=== PATIENT | female | born 1990 | race Caucasian/White ===

== ENCOUNTER 2020-05-31 19:08 | Inpatient (IN) | payer MEDICAID ==
[2020-05-31] MEDS ORDERED: Nalbuphine 10 MG/1 ML Vial IVPUSH PRN (19:52)
[2020-05-31] MEDS ORDERED: Ondansetron 4 MG/2 ML SDV IVPUSH PRN (19:52)
[2020-05-31] MEDS ORDERED: Sodium Chloride 0.9% 10 ML Syringe FLUSH PRN (19:52)
[2020-05-31] MEDS ORDERED: Lactated Ringers 1,000 ML IV SCH (20:00)
[2020-05-31] MEDS ORDERED: Oxytocin/Lactated Ringers 10 UNIT/1,000 ML BAG IV SCH (20:00)
--- NOTE | 2020-05-31 20:34 | PCM.LDHP ---
L&D History of Present Illness - General Date of Service: 05/31/20 Admit Problem/Dx: Patient Status Order with Admit Dx/Problem 05/31/20 19:16 Patient Status [ADT] Routine 05/31/20 19:52 Patient Status [ADT] Routine Admission Diagnosis/Problem Admission Diagnosis/Problem Source of Information: Patient History Limitations: Reports: No Limitations - History of Present Illness Introduction:: 30-year-old -0-1-3 JACE 06/14/2020 estimated gestational age 38 weeks 0 days presented to labor delivery complaining contractions throughout the day. Cervix on presentation to labor and delivery 5 to 6 cm dilated 80% effaced at 2022 hrs. amniotomy performed clear fluid heart tones category 1 before and after amniotomy. Cervix 6 cm dilated 80% effaced, soft, anterior, vertex presentation 0 station. GBS negative. Blood type O+ antibody screen negative on 12/13/2019 hemoglobin/hematocrit 13.4/39.6 platelets 254,000. Rubella positive (immune) serology nonreactive, hepatitis B surface antigen nonreactive hepatitis C nonreactive, GC and Chlamydia probe not detected. GBS negative as noted above. 03/03/2020 hemoglobin 11.8 platelets 257,000 OB glucose screen 77 antibody screen negative Patient does have a history of having had herpes last outbreak of some 7 years ago not on prophylactic medication at present time. No outbreaks no lesions no medication started at present time since patient is an active labor. Plan labor and delivery. Patient declined epidural anesthesia. Timing/Duration: Reports: hour(s): Location, : Reports: Abdomen, Lower back, Uterus Quality: Reports: Ache, Pressure Severity: Moderate Improves with: Reports: None Worsens with: Reports: None Associated Symptoms: Reports: N - Related Data Allergies/Adverse Reactions: Allergies Allergy/AdvReac Type Severity Reaction Status Date / Time cat dander Allergy Unknown Itching Verified 10/10/18 02:44 Home Medications: Home Meds Calcium Carbonate [Tums] 300 mg PO Q2HR PRN 10/10/18 [History] Levothyroxine 225 mcg PO ACBREAKFAST 10/10/18 [History] No122/Iron/Folic Acid [ Multi Tablet] 1 each PO DAILY 10/10/18 [History] calcitrioL [Rocaltrol] 0.5 mcg PO DAILY 10/10/18 [History] Ibuprofen [Motrin] 600 mg PO Q6H PRN tablet 10/11/18 [Rx] Past Medical History Respiratory History: Reports: Asthma Genitourinary History: Reports: Other (See Below) Other Genitourinary History: genital herpes CLIENT SERVICES ASSISTANT History: Reports: , Spontaneous Endocrine/Metabolic History: Reports: Hypothyroidism - Infectious Disease History Infectious Disease History: Reports: Chicken Pox - Past Surgical History HEENT Surgical History: Reports: Other (See Below) Other HEENT Surgeries/Procedures: Thyroidectomy Social & Family History - Family History Family Medical History: No Pertinent Family History H&P Review of Systems - Review of Systems: Review Of Systems: See Below General: Reports: No Symptoms HEENT: Reports: No Symptoms Pulmonary: Reports: No Symptoms Cardiovascular: Reports: No Symptoms Gastrointestinal: Reports: No Symptoms Genitourinary: Reports: No Symptoms Musculoskeletal: Reports: No Symptoms Skin: Reports: No Symptoms Psychiatric: Reports: No Symptoms Neurological: Reports: No Symptoms Hematologic/Lymphatic: Reports: No Symptoms Immunologic: Reports: No Symptoms L&D Exam - Exam Exam: See Below - Vital Signs Weight: 142 lb - OB Specific Fundal Height In cm: 38 Contraction Duration (sec): 60 Contraction Frequency (min): 35 Contraction Intensity: Moderate Movement: Active Heart Tones: Present Heart Tones per Min: 140 Heart Rate (FHR) Variability: Moderate (6-25 bmp) Presentation: Vertex - Linn Score Linn Score Cervix Position: Anterior Linn Score Consistency: Soft Linn Score Effacement: >80% Linn Score Dilation: > 5 cm Linn Score 's Station: -1 ,0 Linn Score Total: 12 - Exam General: Alert, Oriented HEENT: Conjunctiva Clear, Mucosa Moist & [place] Neck: Supple, Trachea Midline Lungs: Clear to Auscultation, Normal Respiratory Effort Cardiovascular: Regular Rate, Regular Rhythm GI/Abdominal Exam: Normal Bowel Sounds, Soft, Non-Tender Genitourinary: Normal external exam Extremities: Normal Inspection, Non-Tender, No Pedal Edema, Normal Capillary Refill Skin: Warm, Dry, Intact Psychiatric: Alert, Normal Affect, Normal Mood - Patient Data Lab Results Last 24 hrs: Laboratory Results - last 24 hr 05/31/20 Range/Units 20:05 WBC 7.82 (3.98-10.04) K/mm3 RBC 3.69 L (3.98-5.22) M/mm3 Hgb 10.5 L (11.2-15.7) gm/dl Hct 32.2 L (34.1-44.9) % MCV 87.3 D (79.4-94.8) fl MCH 28.5 (25.6-32.2) pg MCHC 32.6 (32.2-35.5) g/dl RDW Std Deviation 41.2 (36.4-46.3) fL Plt Count 207 (182-369) K/mm3 MPV 11.1 (9.4-12.3) fl Neut % (Auto) 66.6 (34.0-71.1) % Lymph % (Auto) 19.4 (19.3-51.7) % [place] % (Auto) 12.0 (4.7-12.5) % Eos % (Auto) 1.5 (0.7-5.8) Baso % (Auto) 0.1 (0.1-1.2) % Neut # (Auto) 5.20 (1.56-6.13) K/mm3 Lymph # (Auto) 1.52 (1.18-3.74) K/mm3 [place] # (Auto) 0.94 H (0.24-0.36) K/mm3 Eos # (Auto) 0.12 (0.04-0.36) K/mm3 Baso # (Auto) 0.01 (0.01-0.08) K/mm3 Result Diagrams: 05/31/20 20:05 - Problem List (1) 38 weeks gestation of SNOMED Code(s): 35016679 ICD Code: Z3A.38 - 38 WEEKS GESTATION OF Status: Acute Current Visit: Yes Problem List Initiated/Reviewed/Updated: No Orders Last 24hrs: Active Orders 24 hr Category Date Time Status Patient Status [ADT] Routine ADT 05/31/20 19:16 Active Patient Status [ADT] Routine ADT 05/31/20 19:52 Active Activity as Tolerated [RC] PFP Care 05/31/20 19:52 Active Communication Order [RC] ASDIRECTED Care 05/31/20 19:52 Active Heart Tones [RC] ASDIRECTED Care 05/31/20 19:53 Active Non Stress Test [RC] PER UNIT ROUTINE Care 05/31/20 19:16 Active Non Stress Test [RC] PER UNIT ROUTINE Care 05/31/20 19:52 Active Notify Provider [RC] PFP Care 05/31/20 19:52 Active Notify Provider [RC] PRN Care 05/31/20 19:52 Active Peripheral IV Care [RC] . DIRECTED Care 05/31/20 19:53 Active Urinary Catheter Assessment [RC] ASDIRECTED Care 05/31/20 19:52 Active Vital Signs [RC] PER UNIT ROUTINE Care 05/31/20 19:16 Active Vital Signs [RC] PER UNIT ROUTINE Care 05/31/20 19:52 Active Regular Diet [DIET] Diet 05/31/20 Breakfast Active CORONAVIRUS COVID-19 CATARINO [MOLEC] Stat Lab 05/31/20 20:05 Received RAPID PLASMA REAGIN,RPR [CHEM] Routine Lab 05/31/20 20:05 Received Lactated Ringers [Ringers, Lactated] 1,000 ml Med 05/31/20 20:00 Active IV ASDIRECTED Nalbuphine [Nubain] Med 05/31/20 19:52 Active 10 mg IVPUSH Q2H PRN Ondansetron [Zofran] Med 05/31/20 19:52 Active 4 mg IVPUSH Q4H PRN Oxytocin/Lactated Ringers [Pitocin in LR 10 Units/1,000 Med 05/31/20 20:00 Active ML] 10 unit in 1,000 ml IV .CONTINUOUS Sodium Chloride 0.9% [Saline Flush] Med 05/31/20 19:52 Active 10 ml FLUSH ASDIRECTED PRN Electronic Heart Tones Ext w TOCO [WOMSER] Oth 05/31/20 19:52 Ordered Routine Electronic Heart Tones Internal [WOMSER] Per Unit Oth 05/31/20 19:52 Ordered Routine Peripheral IV Insertion Adult [OM.PC] Routine Oth 05/31/20 19:52 Ordered Resuscitation Status Routine Resus Stat 05/31/20 19:16 Ordered Medication Orders Lactated Ringer's (Ringers, Lactated) 1,000 mls @ 100 mls/hr IV ASDIRECTED EDWIN Oxytocin/Lactated Ringer's (Pitocin In Lr 10 Units/1,000 Ml) 10 unit in 1,000 mls @ 500 mls/hr IV .CONTINUOUS EDWIN Nalbuphine HCl (Nalbuphine 10 Mg/1 Ml Vial) 10 mg IVPUSH Q2H PRN PRN Reason: Pain Ondansetron HCl (Ondansetron 4 Mg/2 Ml Sdv) 4 mg IVPUSH Q4H PRN PRN Reason: Nausea/Vomiting Sodium Chloride (Sodium Chloride 0.9% 10 Ml Syringe) 10 ml FLUSH ASDIRECTED PRN PRN Reason: Keep Vein Open Assessment/Plan Comment:: Plan labor and delivery
--- NOTE | 2020-05-31 22:34 | PCM.DEL ---
L & D Note - General Info Date of Service: 05/31/20 Mother's Due Date: 06/14/20 - Delivery Note Labor: Spontaneous, Augmented by ARM Delivery Outcome: Livebirth (Female liveborn 05/31/2020 at 2217 hrs. weight 2980 g / 6 pounds 9.1 ounces Apgars 8/9 DENICE under no anesthesia with no lacerations no episiotomy EBL 150) Delivery Method: Spontaneous Vaginal Delivery-Single Delivery Mode: Spontaneous Presentation: Right Occiput Anterior (DENICE) Nuchal Cord: None Prep: Povidone-Iodine (Betadine Episiotomy Type: None Laceration: None Placenta: Intact, Spontaneous (Spontaneous delivery at 2221 hrs. 05/31/2020 70) Cord: 3 Vessels Estimated Blood Loss: 150 Resuscitation Needed: No : Suctioned, Bulb Syringe, Stimulated, Warmed, [place] Used, Warmer Used Provider: Larry Walker Score 1 min: 8 Score 5 min: 9 Induction Criteria - Augmentation Weight Estimated:: Reports: AGA Reassuring Monitoring Strip: Yes Absence of Tachy Systole: Yes - General Info Date of Service: 05/31/20 Functional Status: Reports: Pain Controlled - Review of Systems General: Reports: No Symptoms HEENT: Reports: No Symptoms Pulmonary: Reports: No Symptoms Cardiovascular: Reports: No Symptoms Gastrointestinal: Reports: No Symptoms Genitourinary: Reports: No Symptoms Musculoskeletal: Reports: No Symptoms Skin: Reports: No Symptoms Neurological: Reports: No Symptoms Psychiatric: Reports: No Symptoms - Patient Data Vitals - Most Recent: Last Vital Signs Temp 99.0 F 05/31/20 19:29 Pulse 103 H 05/31/20 19:29 Resp 18 05/31/20 19:29 BP 124/66 05/31/20 19:29 Pulse Ox 100 05/31/20 19:29 Weight - Most Recent: 142 lb Lab Results Last 24 Hours: Laboratory Results - last 24 hr 05/31/20 05/31/20 Range/Units 20:05 20:05 WBC 7.82 (3.98-10.04) K/mm3 RBC 3.69 L (3.98-5.22) M/mm3 Hgb 10.5 L (11.2-15.7) gm/dl Hct 32.2 L (34.1-44.9) % MCV 87.3 D (79.4-94.8) fl MCH 28.5 (25.6-32.2) pg MCHC 32.6 (32.2-35.5) g/dl RDW Std Deviation 41.2 (36.4-46.3) fL Plt Count 207 (182-369) K/mm3 MPV 11.1 (9.4-12.3) fl Neut % (Auto) 66.6 (34.0-71.1) % Lymph % (Auto) 19.4 (19.3-51.7) % [place] % (Auto) 12.0 (4.7-12.5) % Eos % (Auto) 1.5 (0.7-5.8) Baso % (Auto) 0.1 (0.1-1.2) % Neut # (Auto) 5.20 (1.56-6.13) K/mm3 Lymph # (Auto) 1.52 (1.18-3.74) K/mm3 [place] # (Auto) 0.94 H (0.24-0.36) K/mm3 Eos # (Auto) 0.12 (0.04-0.36) K/mm3 Baso # (Auto) 0.01 (0.01-0.08) K/mm3 SARS-CoV-2 RNA (CATARINO) Negative (NEGATIVE) Med Orders - Current: Current Medications Lactated Ringer's (Ringers, Lactated) 1,000 mls @ 100 mls/hr IV ASDIRECTED EDWIN Oxytocin/Lactated Ringer's (Pitocin In Lr 10 Units/1,000 Ml) 10 unit in 1,000 mls @ 500 mls/hr IV .CONTINUOUS EDWIN Nalbuphine HCl (Nalbuphine 10 Mg/1 Ml Vial) 10 mg IVPUSH Q2H PRN PRN Reason: Pain Ondansetron HCl (Ondansetron 4 Mg/2 Ml Sdv) 4 mg IVPUSH Q4H PRN PRN Reason: Nausea/Vomiting Sodium Chloride (Sodium Chloride 0.9% 10 Ml Syringe) 10 ml FLUSH ASDIRECTED PRN PRN Reason: Keep Vein Open - Exam General: Alert, Oriented HEENT: Mucous Membr. Moist/[place] Lungs: Clear to Auscultation, Normal Respiratory Effort Cardiovascular: Regular Rate, Regular Rhythm (Female) Exam: Normal External Exam Extremities: Normal Inspection (large varicose veins bilat lower extremities), Non-Tender, No Pedal Edema, Normal Capillary Refill Skin: Warm, Dry, Intact Psy/Mental Status: Alert, Normal Affect, Normal Mood - Problem List & Annotations (1) 38 weeks gestation of SNOMED Code(s): 66177931 Code(s): Z3A.38 - 38 WEEKS GESTATION OF Status: Acute Current Visit: Yes (2) Encounter for full-term uncomplicated delivery SNOMED Code(s): 840852350 Code(s): O80 - ENCOUNTER FOR FULL-TERM UNCOMPLICATED DELIVERY Status: Acute Current Visit: Yes - Problem List Review Problem List Initiated/Reviewed/Updated: No - My Orders Last 24 Hours: My Active Orders 05/31/20 Breakfast Regular Diet [DIET] 05/31/20 19:16 Patient Status [ADT] Routine Non Stress Test [RC] PER UNIT ROUTINE Vital Signs [RC] PER UNIT ROUTINE Resuscitation Status Routine 05/31/20 19:52 Patient Status [ADT] Routine Activity as Tolerated [RC] PFP Communication Order [RC] ASDIRECTED Non Stress Test [RC] PER UNIT ROUTINE Notify Provider [RC] PFP Notify Provider [RC] PRN Urinary Catheter Assessment [RC] ASDIRECTED Vital Signs [RC] ,,, Nalbuphine [Nubain] 10 mg IVPUSH Q2H PRN Ondansetron [Zofran] 4 mg IVPUSH Q4H PRN Sodium Chloride 0.9% [Saline Flush] 10 ml FLUSH ASDIRECTED PRN Electronic Heart Tones Ext w TOCO [WOMSER] Routine Electronic Heart Tones Internal [WOMSER] Per Unit Routine Peripheral IV Insertion Adult [OM.PC] Routine 05/31/20 19:53 Heart Tones [RC] ASDIRECTED Peripheral IV Care [RC] . DIRECTED 05/31/20 20:00 Lactated Ringers [Ringers, Lactated] 1,000 ml IV ASDIRECTED Oxytocin/Lactated Ringers [Pitocin in LR 10 Units/1,000 ML] 10 unit in 1,000 ml IV .CONTINUOUS 05/31/20 20:05 RAPID PLASMA REAGIN,RPR [CHEM] Routine - Plan Plan:: Plan labor and delivery
[2020-05-31] MEDS ORDERED: Acetaminophen 325 MG Tab PO PRN (22:40)
[2020-05-31] MEDS ORDERED: Ibuprofen 600 MG Tab PO PRN (22:40)
[2020-05-31] MEDS ORDERED: Witch Hazel Medicated Pads 40/Jar TOP PRN (22:40)
[2020-05-31] MEDS ORDERED: Docusate Sodium 100 MG Cap PO PRN (22:40)
[2020-05-31] MEDS ORDERED: Benzocaine/Menthol 20%-0.5% Spray 56 GM Canister TOP PRN (22:40)
[2020-06-01] MEDS ORDERED: Calcium Carbonate 500 MG Tab.Chew PO PRN (05:59)
[2020-06-01] MEDS ORDERED: Levothyroxine 25 MCG Tab PO SCH (06:00)
--- NOTE | 2020-06-01 08:25 | PCM.PNPP ---
- General Info Date of Service: 06/01/20 Admission Dx/Problem (Free Text): Patient Status Order with Admit Dx/Problem 05/31/20 19:16 Patient Status [ADT] Routine 05/31/20 19:52 Patient Status [ADT] Routine Admission Diagnosis/Problem Admission Diagnosis/Problem Subjective Update: Patient is doing well today. She reports that she has been ambulating and used the restroom. Has not yet had a bowel movement. She slept well last night. She denies any concerns about vaginal bleeding. She is and this going well, although the infant went to the nursery last night so she could rest. She does have a history of hypothyroidism and started taking her home Levothyroxine 175 mg dose. Functional Status: Reports: Pain Controlled, Tolerating Diet, Ambulating, Urinating - Review of Systems General: Reports: No Symptoms Pulmonary: Reports: No Symptoms Cardiovascular: Reports: No Symptoms Gastrointestinal: Reports: No Symptoms Genitourinary: Reports: No Symptoms Psychiatric: Reports: No Symptoms - General Info Date of Service: 06/01/20 - Patient Data Vital Signs - Most Recent: Last Vital Signs Temp 98.8 F 06/01/20 04:51 Pulse 76 06/01/20 04:51 Resp 14 06/01/20 04:51 BP 99/70 06/01/20 04:51 Pulse Ox 96 06/01/20 04:51 Weight - Most Recent: 142 lb I&O - Last 24 Hours: Intake & Output 05/31/20 06/01/20 06/01/20 22:59 06:59 14:59 Intake Total 1000 Balance 1000 Lab Results - Last 24 Hours: Laboratory Results - last 24 hr 05/31/20 05/31/20 06/01/20 Range/Units 20:05 20:05 06:17 WBC 7.82 10.71 H (3.98-10.04) K/mm3 RBC 3.69 L 3.71 L (3.98-5.22) M/mm3 Hgb 10.5 L 10.4 L (11.2-15.7) gm/dl Hct 32.2 L 32.4 L (34.1-44.9) % MCV 87.3 D 87.3 (79.4-94.8) fl MCH 28.5 28.0 (25.6-32.2) pg MCHC 32.6 32.1 L (32.2-35.5) g/dl RDW Std Deviation 41.2 41.0 (36.4-46.3) fL Plt Count 207 210 (182-369) K/mm3 MPV 11.1 10.8 (9.4-12.3) fl Neut % (Auto) 66.6 77.8 H (34.0-71.1) % Lymph % (Auto) 19.4 11.0 L (19.3-51.7) % [place] % (Auto) 12.0 9.9 (4.7-12.5) % Eos % (Auto) 1.5 1.0 (0.7-5.8) Baso % (Auto) 0.1 0.1 (0.1-1.2) % Neut # (Auto) 5.20 8.33 H (1.56-6.13) K/mm3 Lymph # (Auto) 1.52 1.18 (1.18-3.74) K/mm3 [place] # (Auto) 0.94 H 1.06 H (0.24-0.36) K/mm3 Eos # (Auto) 0.12 0.11 (0.04-0.36) K/mm3 Baso # (Auto) 0.01 0.01 (0.01-0.08) K/mm3 SARS-CoV-2 RNA (CATARINO) Negative (NEGATIVE) Med Orders - Current: Current Medications Acetaminophen (Acetaminophen 325 Mg Tab) 650 mg PO Q4H PRN PRN Reason: mild pain or fever Benzocaine/Menthol (Benzocaine/Menthol 20%-0.5% Andrews 56 Gm Canister) 0 gm TOP ASDIRECTED PRN PRN Reason: Perineal Comfort Measure Calcitriol (Calcitriol 0.25 Mcg Cap) 0.5 mcg PO DAILY EDWIN Calcium Carbonate/Glycine (Calcium Carbonate 500 Mg Tab.Chew) 500 mg PO Q2HR PRN PRN Reason: Heartburn Docusate Sodium (Docusate Sodium 100 Mg Cap) 100 mg PO BID PRN PRN Reason: Constipation Ibuprofen (Ibuprofen 600 Mg Tab) 600 mg PO Q4H PRN PRN Reason: Mild pain or fever Levothyroxine Sodium (Levothyroxine 200 Mcg Tab) 200 mcg PO ACBREAKFAST EDWIN Levothyroxine Sodium (Levothyroxine 25 Mcg Tab) 25 mcg PO ACBREAKFAST [facility] Prenat Multivit/Warranty Manager/Iron/Folic Ac ( Multivitamin With Calcium/Folic Acid/Iron Tab) 1 each PO DAILY [facility] Witch Malina (Witch Malina Medicated Pads 40/Jar) 1 pad TOP ASDIRECTED PRN PRN Reason: Perineal Comfort Measure Discontinued Medications Lactated Ringer's (Ringers, Lactated) 1,000 mls @ 100 mls/hr IV ASDIRECTED [facility] Oxytocin/Lactated Ringer's (Pitocin In Lr 10 Units/1,000 Ml) 10 unit in 1,000 mls @ 500 mls/hr IV .CONTINUOUS [facility] Last Admin: 05/31/20 22:20 Dose: 500 mls/hr Documented by: Nalbuphine HCl (Nalbuphine 10 Mg/1 Ml Vial) 10 mg IVPUSH Q2H PRN PRN Reason: Pain Ondansetron HCl (Ondansetron 4 Mg/2 Ml Sdv) 4 mg IVPUSH Q4H PRN PRN Reason: Nausea/Vomiting Sodium Chloride (Sodium Chloride 0.9% 10 Ml Syringe) 10 ml FLUSH ASDIRECTED PRN PRN Reason: Keep Vein Open - Infant Interaction Disposition, : [place] in Room with Family Interaction: Holding Feeding: Attempted ; Nursed Fair/Poor Support Person: - Recovery Exam Fundal Tone: Firm Fundal Level: 2 Fingerbreadths Below Umbilicus Fundal Placement: Midline Lochia Amount: Scant Lochia Color: Rubra/Red Perineum Description: Intact, Minimal Bruising/Swelling Episiotomy/Laceration: None Bladder Status: Nonpalpable, Voiding Urinary Elimination: Voided - Exam General: Alert, Oriented Lungs: Clear to Auscultation, Normal Respiratory Effort Cardiovascular: Regular Rate, Regular Rhythm GI/Abdominal Exam: Normal Bowel Sounds, Soft, Non-Tender Extremities: Normal Inspection, Non-Tender, No Pedal Edema, Normal Capillary Refill Skin: Warm, Dry, Intact Neurological: No New Focal Deficit Psy/Mental Status: Alert, Normal Affect, Normal Mood - Problem List & Annotations (1) Normal spontaneous vaginal delivery SNOMED Code(s): 04094702, 927341232 Code(s): O80 - ENCOUNTER FOR FULL-TERM UNCOMPLICATED DELIVERY Status: Acute Current Visit: Yes (2) 38 weeks gestation of SNOMED Code(s): 53910545 Code(s): Z3A.38 - 38 WEEKS GESTATION OF Status: Acute Current Visit: Yes (3) Hypothyroidism SNOMED Code(s): 11588780 Code(s): E03.9 - HYPOTHYROIDISM, UNSPECIFIED Status: Acute Current Visit: Yes - Problem List Review Problem List Initiated/Reviewed/Updated: Yes - Plan Plan:: Patient is a 30 year old O+ GBS- Post day 1 of a live female infant weighing 6 lbs 9.1 ounces (2980 g) with apgars of 8/9. 1. O+ with negative antibody screen 2. Rubella immune 3. GBS - 4. PPD#1 without complications 5. care per unit routine 6. well 7. Activity as tolerated 8. Regular diet 9. Anticipate discharge home in 24-48 hours pending stake driver's recommendation 10. Hypothyroidism - start home med levothyroxine 175 mg. Recheck thyroid function studies at post follow up.
[2020-06-01] MEDS: Calcitriol 0.25 MCG Cap PO SCH (15:45)
[2020-06-01] MEDS: Prenatal Multivitamin with Calcium/Folic Acid/Iron Tab PO SCH (15:45)
[2020-06-02] MEDS ORDERED: LEVOTHYROXINE 175 MCG PO SCH (06:00)
[2020-06-02 08:37] VITALS: BP 120/66; PULSE 86
--- NOTE | 2020-06-02 10:14 | PCM.DCSUM1 ---
Discharge Summary - Hospital Course Diagnosis: Stroke: No - Discharge Data Discharge Date: 06/02/20 Discharge Disposition: Home, Self-Care 01 Condition: Good - Referral to Home Health Primary Care Physician: Paloma Rae MD - Patient Summary/Data Hospital Course: Delivery Note Labor: Spontaneous, Augmented by ARM Delivery Outcome: Livebirth (Female liveborn 05/31/2020 at 2217 hrs. weight 2980 g / 6 pounds 9.1 ounces Apgars 8/9 DENICE under no anesthesia with no lacerations no episiotomy EBL 150) Delivery Method: Spontaneous Vaginal Delivery-Single Delivery Mode: Spontaneous Presentation: Right Occiput Anterior (DENICE) Nuchal Cord: None Prep: Povidone-Iodine (Betadine Episiotomy Type: None Laceration: None Placenta: Intact, Spontaneous (Spontaneous delivery at 2221 hrs. 05/31/2020 70) Cord: 3 Vessels Estimated Blood Loss: 150 Resuscitation Needed: No : Suctioned, Bulb Syringe, Stimulated, Warmed, [place] Used, Warmer Used Provider: Larry Walker Score 1 min: 8 Score 5 min: 9 - Patient Instructions Diet: Usual Diet as Tolerated Activity: No Strenuous Activities Activity, Other: pelvic rest Driving: May Drive Today Showering/Bathing: May Shower Notify Provider of: Fever, Increased Pain, Swelling and Redness, Drainage, Nausea and/or Vomiting - Discharge Plan *PRESCRIPTION DRUG MONITORING PROGRAM REVIEWED*: No *COPY OF PRESCRIPTION DRUG MONITORING REPORT IN PATIENT KAILYN: No Home Medications: Home Meds No122/Iron/Folic Acid [ Multi Tablet] 1 each PO DAILY 10/10/18 [History] calcitrioL [Rocaltrol] 0.5 mcg PO DAILY 10/10/18 [History] Levothyroxine 200 mcg PO ACBREAKFAST 06/01/20 [History] Referrals: Paloma Rae MD [Primary Care Provider] - (5 weeks) - Discharge Summary/Plan Comment DC Time >30 min.: No - General Info Date of Service: 06/02/20 Functional Status: Reports: Pain Controlled - Review of Systems General: Reports: No Symptoms HEENT: Reports: No Symptoms Pulmonary: Reports: No Symptoms Cardiovascular: Reports: No Symptoms Gastrointestinal: Reports: No Symptoms Genitourinary: Reports: No Symptoms Musculoskeletal: Reports: No Symptoms Skin: Reports: No Symptoms Neurological: Reports: No Symptoms Psychiatric: Reports: No Symptoms - Patient Data Vitals - Most Recent: Last Vital Signs Temp 36.4 C 06/02/20 08:25 Pulse 86 06/02/20 08:25 Resp 16 06/02/20 08:25 BP 120/66 06/02/20 08:25 Pulse Ox 98 06/02/20 08:25 Weight - Most Recent: 64.41 kg I&O - Last 24 hours: Intake & Output 06/01/20 06/02/20 06/02/20 22:59 06:59 14:59 Intake Total 520 Balance 520 Lab Results - Last 24 hrs: Laboratory Results - last 24 hr 05/31/20 Range/Units 20:05 RPR Non-reactive (NONREACTIVE) Med Orders - Current: Current Medications Acetaminophen (Acetaminophen 325 Mg Tab) 650 mg PO Q4H PRN PRN Reason: mild pain or fever Benzocaine/Menthol (Benzocaine/Menthol 20%-0.5% [place] 56 Gm Canister) 0 gm TOP ASDIRECTED PRN PRN Reason: Perineal Comfort Measure Calcitriol (Calcitriol 0.25 Mcg Cap) 0.5 mcg PO DAILY [facility] Last Admin: 06/01/20 15:45 Dose: Not Given Documented by: Calcium Carbonate/Glycine (Calcium Carbonate 500 Mg Tab.Chew) 500 mg PO Q2HR PRN PRN Reason: Heartburn Docusate Sodium (Docusate Sodium 100 Mg Cap) 100 mg PO BID PRN PRN Reason: Constipation Ibuprofen (Ibuprofen 600 Mg Tab) 600 mg PO Q4H PRN PRN Reason: Mild pain or fever Levothyroxine 175 (Mcg Tab.) 0 each PO ACBREAKFAST [facility] Prenat Multivit/Formulation Chemist/Iron/Folic Ac ( Multivitamin With Calcium/Folic Acid/Iron Tab) 1 each PO DAILY [facility] Last Admin: 06/01/20 15:45 Dose: Not Given Documented by: James Radford (James Radford Medicated Pads 40/Jar) 1 pad TOP ASDIRECTED PRN PRN Reason: Perineal Comfort Measure Discontinued Medications Lactated Ringer's (Ringers, Lactated) 1,000 mls @ 100 mls/hr IV ASDIRECTED [facility] Oxytocin/Lactated Ringer's (Pitocin In Lr 10 Units/1,000 Ml) 10 unit in 1,000 mls @ 500 mls/hr IV .CONTINUOUS EDWIN Last Admin: 05/31/20 22:20 Dose: 500 mls/hr Documented by: Levothyroxine Sodium (Levothyroxine 200 Mcg Tab) 200 mcg PO ACBREAKFAST EDWIN Last Admin: 06/01/20 15:46 Dose: Not Given Documented by: Levothyroxine Sodium (Levothyroxine 25 Mcg Tab) 25 mcg PO ACBREAKFAST EDWIN Last Admin: 06/01/20 15:46 Dose: Not Given Documented by: Nalbuphine HCl (Nalbuphine 10 Mg/1 Ml Vial) 10 mg IVPUSH Q2H PRN PRN Reason: Pain Ondansetron HCl (Ondansetron 4 Mg/2 Ml Sdv) 4 mg IVPUSH Q4H PRN PRN Reason: Nausea/Vomiting Sodium Chloride (Sodium Chloride 0.9% 10 Ml Syringe) 10 ml FLUSH ASDIRECTED PRN PRN Reason: Keep Vein Open - Exam General: Reports: Alert, Oriented HEENT: Reports: Pupils Equal, Pupils Reactive, EOMI, Mucous Membr. Moist/[place] Neck: Reports: Supple Lungs: Reports: Clear to Auscultation, Normal Respiratory Effort Cardiovascular: Reports: Regular Rate, Regular Rhythm GI/Abdominal Exam: Normal Bowel Sounds, Soft, Non-Tender, No Organomegaly, No Distention, No Abnormal Bruit, No Mass, Pelvis Stable Rectal (Female) Exam: Normal Exam, Normal Rectal Tone Back Exam: Reports: Normal Inspection, Full Range of Motion Extremities: Normal Inspection, Normal Range of Motion, Non-Tender, No Pedal Edema, Normal Capillary Refill Skin: Reports: Warm, Dry, Intact Wound/Incisions: Reports: Healing Well Neurological: Reports: No New Focal Deficit Psy/Mental Status: Reports: Alert, Normal Affect, Normal Mood
[2020-06-02] MEDS: Calcitriol 0.25 MCG Cap PO SCH (10:56)
[2020-06-02] MEDS: Prenatal Multivitamin with Calcium/Folic Acid/Iron Tab PO SCH (10:56)
== END 2020-06-02 13:45 | disposition home or self-care (01) | DRG 807 ==
LOC: JD.OBCHECK 19:08 → JD.OB 19:13 → JD.OBCHECK 19:51 → JD.OB 19:52 → OBSVTOIN 22:17 → JD.OB 22:18
PROVIDERS: ADMIT Obstetrics & Gynecology; ATTEND Obstetrics & Gynecology
PROC: 10E0XZZ Delivery of Products of Conception, External Approach (ICD-10-PCS; principal; 2020-05-31)
DX: O99.284 Endocrine, nutritional and metabolic diseases complicating childbirth (principal); Z37.0 Single live birth; E03.9 Hypothyroidism, unspecified; Z3A.38 38 weeks gestation of pregnancy; Z20.822 Contact with and (suspected) exposure to COVID-19
CPT/HCPCS: 36415; 59025; 59409; 85025; 86592; A9270-GY; J2590; U0002